=== PATIENT | male | born 1985 | race Caucasian/White ===

== ENCOUNTER → 2018-05-10 | Outpatient (REF) | payer OTHER ==
[2018-05-10 22:36] LABS: CHLAMYDIA DNA AMPLIFICATION NEGATIVE (NEGATIVE); GC DNA AMPLIFICATION NEGATIVE (NEGATIVE)
== END ==
LOC: M SFHCLERA 17:50
PROVIDERS: ATTEND Physician Assistant
DX: R30.0 Dysuria (principal)

== ENCOUNTER → 2019-02-25 | Outpatient (CLI) | payer OTHER ==
--- NOTE | 2019-02-25 19:14 | REP ---
Bilateral digital diagnostic mammography and focused bilateral breast sonography: History: Lump in the left breast. Present since November 28, 2018. Nontender, 10-12 mm cystic lesion above the left areola at 11 o'clock. No comparison breast imaging. Mammographic findings: A skin marker is affixed to the skin at the site of the palpable lump. There is a non mass-like area of retroareolar density projecting in the upper outer quadrant of the left breast retroareolar region consistent with gynecomastia. No spiculation architectural distortion or skin changes are seen. No microcalcification is observed. There is minimal subareolar change on the right. Sonographic findings: Focused bilateral sub subareolar sonography is performed. Hypoechoic tissue is seen in a fan shaped orientation in the retroareolar region on the left consistent with gynecomastia. No acoustic shadowing or architectural distortion is seen. Scanning on the right side shows minimal subareolar hypoechoic tissue as well. Much less prominent on the right. Impression: BIRADS category II benign findings. Asymmetric gynecomastia. Left more prominent than right. Clinical follow-up is advised. BIRADS 2: BI-RADS/ACR category 2 mammogram. Benign Findings. This mammogram was interpreted with the aid of an FDA-approved computer-aided detection system. The patient states she had a clinical breast exam in February 2019 The patient letter being requested is male letter M2. Electronically Signed by Spencer Reyes MD 02/25/2019 08:55 P
== END ==
LOC: M RAD 13:30
PROVIDERS: ATTEND Family Medicine
DX: N63.20 Unspecified lump in the left breast, unspecified quadrant (principal)

== ENCOUNTER → 2019-06-19 | Outpatient (REF) | payer OTHER ==
[2019-06-19 20:31] LABS: CHLAMYDIA DNA AMPLIFICATION NEGATIVE (NEGATIVE); GC DNA AMPLIFICATION NEGATIVE (NEGATIVE)
== END ==
LOC: M SFHCLERA 12:05
PROVIDERS: ATTEND Physician Assistant
DX: Z11.3 Encounter for screening for infections with a predominantly sexual mode of transmission (principal); R10.2 Pelvic and perineal pain
CPT/HCPCS: 81002; 87086; 87661; G0463

== ENCOUNTER → 2019-06-24 | Outpatient (REF) | payer OTHER | LOC: M SFHCLERA 14:58 | PROVIDERS: ATTEND Physician Assistant | DX: N48.89 Other specified disorders of penis (principal) | CPT/HCPCS: 81002; 87070; G0463 ==

== ENCOUNTER → 2019-11-29 | Outpatient (REF) | payer OTHER | LOC: M WUC 12:05 | PROVIDERS: ATTEND Nurse Practitioner Family | DX: R30.0 Dysuria (principal) ==